=== PATIENT | female | born 1935 | race Caucasian/White ===

== ENCOUNTER → 2018-09-10 | Outpatient (CLI) | payer MEDICARE, OTHER ==
--- NOTE | 2018-09-10 12:35 | Diagnostic Imaging Report ---
EXAM: CT Abdomen and Pelvis WITHOUT contrast INDICATION: Gross hematuria COMPARISON: MRI abdomen 05/12/2014. TECHNIQUE: Abdomen and pelvis were scanned utilizing a multidetector helical scanner from the lung base to the pubic symphysis without administration of IV contrast. Absence of intravenous contrast decreases sensitivity for detection of focal lesions and vascular pathology. Coronal and sagittal reformations were obtained. Routine protocol was performed. RADIATION DOSE: Total DLP: 253 mGy*cm COMPLICATIONS: None FINDINGS: LINES and TUBES: None. LOWER THORAX: There is bronchiectasis with mucoid impaction in the left lower lobe. Patchy tree-in-bud opacities in the left lower lobe, for example on series 3, image 7. Bronchial wall thickening in bilateral lower lobes. Calcified granulomas present in the right lower lobe. Dependent atelectatic changes. Mitral annular and aortic valve calcifications. Coronary atherosclerosis. HEPATOBILIARY: No focal hepatic lesions. No biliary ductal dilation. GALLBLADDER: No radio-opaque stones or sludge. No wall thickening. SPLEEN: No splenomegaly. PANCREAS: No focal masses or ductal dilatation. ADRENALS: No adrenal nodules KIDNEYS/URETERS: No hydronephrosis. No evidence of stone. There is a simple right lower pole renal cyst measuring up to 8.7 cm and a simple left lower pole renal cyst, measuring up to 3.1 cm. A 1 cm hypodense left mid pole cystic lesion (17 HU; series 3, image 61), was previously characterized as a cyst on prior MRI from 05/12/2014. Additional subcentimeter left renal hypodensities are too small to characterize but likely represent cysts. GI TRACT: No abnormal distention, wall thickening, or evidence of bowel obstruction. 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 PELVIC ORGANS/BLADDER: Calcified phleboliths without definite ureteral stone. Bladder appears unremarkable. Status post hysterectomy. LYMPH NODES: No lymphadenopathy. VESSELS: Atherosclerotic calcifications of the abdominal aorta and branch vessels. 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 PERITONEUM / RETROPERITONEUM: No free air or fluid. BONES/SOFT TISSUES: There is an age-indeterminate moderate wedge compression deformity of the L1 vertebral body. IMPRESSION: No evidence of renal stone or hydronephrosis. Bilateral renal cysts. Bronchiectasis with mucoid impaction and tree in bud opacities in the left lower lobe, suggestive of chronic mycobacterial infection. Age indeterminate moderate wedge compression deformity of the L1 vertebral body. Signed by: Dr. Gali Jorge MD on 09/10/2018 12:31 PM
== END ==
LOC: CT 09:38
PROVIDERS: ATTEND Internal Medicine
DX: R31.0 Gross hematuria (principal)
CPT/HCPCS: 74176

== ENCOUNTER 2021-03-03 22:32 | Emergency (ER) | payer MEDICARE, OTHER ==
[~2021-03-03] VITALS: Ht 167.6 cm; Wt 70.3 kg
[2021-03-04 00:31] VITALS: BP 133/77
== END 2021-03-04 00:30 | disposition home or self-care (01) ==
LOC: ER 22:45
DX: S80.12XA Contusion of left lower leg, initial encounter (principal); W01.0XXA Fall on same level from slipping, tripping and stumbling without subsequent striking against object, initial encounter; I10 Essential (primary) hypertension; E78.5 Hyperlipidemia, unspecified; M79.89 Other specified soft tissue disorders
CPT/HCPCS: 93971; 99282

== ENCOUNTER 2021-03-07 01:37 | Emergency (ER) | payer OTHER, MEDICARE ==
[~2021-03-07] VITALS: Ht 167.6 cm; Wt 66.7 kg
== END 2021-03-07 02:05 | disposition home or self-care (01) ==
LOC: ER 01:40
DX: S60.811A Abrasion of right wrist, initial encounter (principal); W01.198A Fall on same level from slipping, tripping and stumbling with subsequent striking against other object, initial encounter; Y92.012 Bathroom of single-family (private) house as the place of occurrence of the external cause; I10 Essential (primary) hypertension; E78.5 Hyperlipidemia, unspecified
CPT/HCPCS: 99284

== ENCOUNTER → 2021-05-04 | Day surgery (SDC) | payer MEDICARE ==
[2021-05-01 15:13] LABS: BASOPHILS % 0.6 % (0.0-1.0); EOSINOPHILS # (AUTO) 0.1 (0.0-0.4); EOSINOPHILS % 1.9 % (0.0-6.0); HEMATOCRIT 43.4 % (34.2-44.1); HEMOGLOBIN 14.4 g/dL (12.0-16.0); LYMPHOCYTES # (AUTO) 1.3 (1.0-3.2); LYMPHOCYTES % 19.9 % (18.0-39.1); MEAN CORPUSCULAR HEMOGLOBIN 31.7 pg (28-32); MEAN CORPUSCULAR HGB CONC 33.2 g/dL (31-35); MEAN CORPUSCULAR VOLUME 95.6 fL (81-99); MONOCYTES # (AUTO) 0.7 (0.2-0.8); MONOCYTES % 9.8 % (4.4-11.3); NEUTROPHILS # (AUTO) 4.6 (2.1-6.9); NEUTROPHILS % 67.5 % (38.7-80.0); PLATELET COUNT 170 x10e3/uL (140-360); RED BLOOD COUNT 4.54 x10e6/uL (3.6-5.1)
[2021-05-01 15:16] LABS: INR 0.96
[2021-05-01 15:23] LABS: ALBUMIN 4.2 g/dL (3.5-5.0); ALBUMIN/GLOBULIN RATIO 1.4 (0.8-2.0); ANION GAP 13.8 mmol/L (8-16); CALCIUM 9.7 mg/dL (8.4-10.2); CREATININE, SERUM 0.8 mg/dL (0.57-1.11); POTASSIUM 4.8 mmol/L (3.5-5.1)
[2021-05-04] VITALS (10 sets, daily range): BP systolic 98–144; BP diastolic 63–82
[~2021-05-04] MED LIST: ATORVASTATIN CA10 MG PO; FENTANYL CITRATE/PF 100MCG/2 ML INJ ONE; HEPARIN SOD/SOD CHLORIDE 2,000 ML ONE; IOPAMIDOL 370 MG/ML 200 ML INFUS..BTL INJ ONE; LIDOCAINE HCL 2% LOCAL 20 ML VIAL ONE; LOSARTAN POTASS25 MG PO; METOPROLOL TART25 MG PO; MIDAZOLAM HCL 2 MG/2 ML VIAL ONE; PROBIOTIC250 MG PO; RESTASIS1 EACH OP; SODIUM CHLORIDE 0.9% 1000ML 1,000 ML ONE; VITAMIN D3 PO
== END | disposition home or self-care (01) ==
LOC: CATH LAB 09:52
PROVIDERS: ATTEND Internal Medicine Cardiovascular Disease
DX: I25.10 Atherosclerotic heart disease of native coronary artery without angina pectoris (principal); I35.0 Nonrheumatic aortic (valve) stenosis; I10 Essential (primary) hypertension; I87.2 Venous insufficiency (chronic) (peripheral); E78.5 Hyperlipidemia, unspecified; Z88.1 Allergy status to other antibiotic agents; Z88.8 Allergy status to other drugs, medicaments and biological substances; Z01.812 Encounter for preprocedural laboratory examination; Z20.822 Contact with and (suspected) exposure to COVID-19
CPT/HCPCS: 36415; 80053; 85025; 85610; 93454; C1887; J2001; J2250; J3010; J7030; Q9967; U0002; 99152

== ENCOUNTER 2022-10-09 18:26 | Observation (INO) | payer MEDICARE ==
[~2022-10-09] VITALS: Ht 167.6 cm; Wt 66.7 kg
[~2022-10-09 18:26] MED LIST changes: -FENTANYL CITRATE/PF 100MCG/2 ML INJ ONE; -HEPARIN SOD/SOD CHLORIDE 2,000 ML ONE; -IOPAMIDOL 370 MG/ML 200 ML INFUS..BTL INJ ONE; -LIDOCAINE HCL 2% LOCAL 20 ML VIAL ONE; -MIDAZOLAM HCL 2 MG/2 ML VIAL ONE; -SODIUM CHLORIDE 0.9% 1000ML 1,000 ML ONE; +SODIUM CHLORIDE FLUSH 10 ML SYR IV PRN
[2022-10-09] MEDS ORDERED: SODIUM CHLORIDE 0.9% 1000ML 1,000 ML IV SCH (18:53)
[2022-10-09] MEDS ORDERED: ONDANSETRON HCL INJ 2MG/ML 2ML 2 MG/ML VIAL IV STA (18:53)
[2022-10-09 19:07] LABS: BASOPHILS % 0.6 % (0.0-1.0); EOSINOPHILS # (AUTO) 0.2 (0.0-0.4); EOSINOPHILS % 3.1 % (0.0-6.0); HEMATOCRIT 42.5 % (34.2-44.1); HEMOGLOBIN 13.1 g/dL (12.0-16.0); LYMPHOCYTES # (AUTO) 1.5 (1.0-3.2); MEAN CORPUSCULAR HEMOGLOBIN 28.5 pg (28-32); MEAN CORPUSCULAR HGB CONC 30.8 g/dL (31-35); MEAN CORPUSCULAR VOLUME 92.6 fL (81-99); MONOCYTES # (AUTO) 0.8 (0.2-0.8); MONOCYTES % 13.1 % (4.4-11.3); NEUTROPHILS # (AUTO) 3.8 (2.1-6.9); NEUTROPHILS % 59.9 % (38.7-80.0); PLATELET COUNT 189 x10e3/uL (140-360); RED BLOOD COUNT 4.59 x10e6/uL (3.6-5.1); RED CELL DISTRIBUTION WIDTH 14.6 % (11.7-14.4)
[2022-10-09 19:14] LABS: INR 1.01; PROTHROMBIN TIME 13.5 seconds (11.9-14.5)
[2022-10-09 19:15] LABS: PARTIAL THROMBOPLASTIN TIME 29.5 seconds (23.8-35.5)
[2022-10-09 19:26] LABS: ALBUMIN 3.8 g/dL (3.5-5.0); ALBUMIN/GLOBULIN RATIO 1.2 (0.8-2.0); ANION GAP 13.1 mmol/L (8-16); CALCIUM 9.3 mg/dL (8.4-10.2); CREATININE, SERUM 0.79 mg/dL (0.57-1.11); POTASSIUM 4.1 mmol/L (3.5-5.1)
[2022-10-09 19:28] LABS: CLARITY,URINE CLEAR (CLEAR); COLOR,URINE YELLOW (YELLOW); KETONES,URINE NEGATIVE (NEGATIVE); LEUKOCYTE ESTERASE ,URINE TRACE (NEGATIVE); NITRITE,URINE NEGATIVE (NEGATIVE); PROTEIN,URINE DIPSTICK NEGATIVE (NEGATIVE); URINE UROBILINOGEN 0.2 mg/dL (0.2 - 1)
[2022-10-09 19:38] LABS: BACTERIA,URINE RARE /HPF; RBC,URINE 0-5 /HPF (0-5)
[2022-10-09] MEDS ORDERED: IOPAMIDOL 370 MG/ML 100 ML INFUS..BTL INJ ONE (19:59)
[2022-10-09] MEDS ORDERED: ONDANSETRON HCL INJ 2MG/ML 2ML 2 MG/ML VIAL IV PRN (23:30)
[2022-10-10] VITALS (8 sets, daily range): BP systolic 107–120; BP diastolic 64–67
[2022-10-10] MEDS ORDERED: ASPIRIN CHEW81 MG PO (01:47)
[2022-10-10] MEDS ORDERED: CLOPIDOGREL75 MG PO (01:59)
[2022-10-10] MEDS ORDERED: COLACE100 MG/10 PO (01:59)
[2022-10-10] MEDS ORDERED: IBANDRONATE SO150 MG (01:59)
[2022-10-10] MEDS ORDERED: ATIVAN0.5 MG PO (01:59)
[2022-10-10] MEDS ORDERED: TYLENOL325 MG PO (01:59)
[2022-10-10] MEDS: SODIUM CHLORIDE 0.9% 1000ML 1,000 ML IV SCH ×2 (02:19→09:30)
[2022-10-10] MEDS ORDERED: METHENAMINE HIPP1 GM PO (07:12)
[2022-10-10] MEDS ORDERED: HYDROCORTISONE ACETATE 25 MG/SUPP.RECT SUPP RC SCH (09:00)
== END 2022-10-10 10:42 | disposition home or self-care (01) ==
LOC: ER 18:31 → ERHOLD 23:27 → MED/SURG 10-10 00:56
PROVIDERS: ADMIT Internal Medicine; ATTEND Internal Medicine
DX: K92.2 Gastrointestinal hemorrhage, unspecified (principal); N39.0 Urinary tract infection, site not specified; I10 Essential (primary) hypertension; E78.5 Hyperlipidemia, unspecified; Z79.01 Long term (current) use of anticoagulants; Z95.2 Presence of prosthetic heart valve; Z20.822 Contact with and (suspected) exposure to COVID-19
CPT/HCPCS: 36415 ×2; 71045; 74174; 80053; 81001; 82948; 83690; 84484; 85025; 85610; 85730; 93005; 99284; C9113 ×2; G0378 ×2; J0696 ×2; J2405; J7030 ×2; Q9967; U0002

== ENCOUNTER 2024-06-08 19:34 | Emergency (ER) | payer MEDICARE ==
[~2024-06-08] VITALS: Ht 170.2 cm; Wt 64.4 kg
[~2024-06-08 19:34] MED LIST changes: +ASPIRIN CHEW81 MG PO; +ATIVAN0.5 MG PO; +CEFUROXIME500 MG PO; +CLOPIDOGREL75 MG PO; +COLACE100 MG/10 PO; +IBANDRONATE SO150 MG; +METHENAMINE HIPP1 GM PO; -SODIUM CHLORIDE FLUSH 10 ML SYR IV PRN; +TYLENOL325 MG PO
[2024-06-08 19:51] VITALS: PULSE 86; RESP 16; TEMP 98.4
[2024-06-08 20:30] VITALS: BP 139/81; PULSE 86; RESP 16; TEMP 98.4; O2SAT 94
== END 2024-06-08 20:30 | disposition home or self-care (01) ==
LOC: FSED 19:37
DX: S00.03XA Contusion of scalp, initial encounter (principal); W01.0XXA Fall on same level from slipping, tripping and stumbling without subsequent striking against object, initial encounter; Y92.89 Other specified places as the place of occurrence of the external cause; I10 Essential (primary) hypertension; E78.5 Hyperlipidemia, unspecified; M81.0 Age-related osteoporosis without current pathological fracture; F41.9 Anxiety disorder, unspecified; Z96.653 Presence of artificial knee joint, bilateral; Z95.4 Presence of other heart-valve replacement; Z79.01 Long term (current) use of anticoagulants
CPT/HCPCS: 70450; 99283

== ENCOUNTER 2025-06-01 13:38 | Emergency (ER) | payer MEDICARE ==
[~2025-06-01] VITALS: Ht 170.2 cm; Wt 56.9 kg
[2025-06-01 14:25] VITALS: PULSE 80; RESP 16; TEMP 97.7; O2SAT 94
== END 2025-06-01 16:42 | disposition home or self-care (01) ==
LOC: FSED 14:28
DX: M25.512 Pain in left shoulder (principal); S40.012A Contusion of left shoulder, initial encounter; W01.0XXA Fall on same level from slipping, tripping and stumbling without subsequent striking against object, initial encounter; Y93.01 Activity, walking, marching and hiking; Y92.89 Other specified places as the place of occurrence of the external cause; I10 Essential (primary) hypertension; E78.5 Hyperlipidemia, unspecified; F41.9 Anxiety disorder, unspecified; M81.0 Age-related osteoporosis without current pathological fracture; Z96.653 Presence of artificial knee joint, bilateral; Z95.4 Presence of other heart-valve replacement
CPT/HCPCS: 70450; 81003; 99283